=== PATIENT | female | born 1955 | race Caucasian/White ===

== ENCOUNTER → 2021-05-13 | Outpatient (CLI) | payer BC ==
[2021-05-13 20:36] LABS: Basophils # (A) 0.02 X 10*3/uL (0.00-0.10); Basophils % (A) 0.3 %; Eosinophils # (A) 0.08 X 10*3/uL (0.04-0.35); HCT 41.3 % (37.2-46.3); HGB 13.3 g/dL (12.0-15.0); Lymphocytes # (A) 1.48 X 10*3/uL (0.90-5.00); Lymphocytes % (A) 18.9 %; MCHC 32.2 g/dL (32.0-37.0); Mean Platelet Volume 10.1 fL (9.5-12.2); Monocytes # (A) 0.63 X 10*3/uL (0.20-1.00); Neutrophils % (A) 71.4 %; Platelet Count 294 X 10*3/uL (140-440); RBC 4.59 X 10*6/uL (4.10-5.20); RDW 13.5 % (11.5-14.5); WBC 7.84 X 10*3/uL (4.50-10.00)
[2021-05-13 21:11] LABS: Uric Acid 3.7 mg/dL (2.9-7.7)
[2021-05-13 22:55] LABS: Erythrocyte Sedimentation Rate 8 mm/Hr (0-30)
[2021-05-13 23:08] LABS: C Reactive Protein <0.30 mg/dL (0.00-0.80)
== END | disposition home or self-care (01) ==
LOC: LABWHC1 15:04
PROVIDERS: ATTEND Orthopaedic Surgery
DX: M70.61 Trochanteric bursitis, right hip (principal); M16.11 Unilateral primary osteoarthritis, right hip; M67.853 Other specified disorders of tendon, right hip
CPT/HCPCS: 36415; 84550; 85025; 85652; 86140

== ENCOUNTER → 2021-09-17 | Outpatient (CLI) | payer BC ==
[2021-09-17 16:17] LABS: INR 0.9 (<1.2); Prothrombin Time 10.2 sec (9.0-12.0)
[2021-09-17 22:56] LABS: Appearance,Urine Clear (Clear); Bilirubin,Urine Negative (Negative); Blood,Urine Negative (Negative); Color,Urine Yellow (Yellow); Ketones,Urine Negative (Negative); Leukocyte Esterase,Urine Negative (Negative); Nitrite,Urine Negative (Negative); PH, Urine 7.5 (5.0-8.0); Protein,Urine Negative (Negative); Urobilinogen,Urine 0.2 (0.2,1.0)
[2021-09-17 23:44] LABS: Basophils # (A) 0.03 X 10*3/uL (0.00-0.10); Basophils % (A) 0.6 %; Eosinophils # (A) 0.09 X 10*3/uL (0.04-0.35); Eosinophils % (A) 1.9 %; HCT 39.2 % (37.2-46.3); HGB 12.1 g/dL (12.0-15.0); Immature Grans, Automated 0.4 %; Lymphocytes # (A) 1.24 X 10*3/uL (0.90-5.00); Lymphocytes % (A) 25.6 %; MCH 26.3 pg (27.0-32.0); MCHC 30.9 g/dL (32.0-37.0); MCV 85.2 fL (80.0-97.0); Mean Platelet Volume 10.3 fL (9.5-12.2); Monocytes # (A) 0.46 X 10*3/uL (0.20-1.00); Monocytes % (A) 9.5 %; NRBC Per 100 WBC 0 /100 WBCS (0.0-0.0); Platelet Count 343 X 10*3/uL (140-440); RDW 15.9 % (11.5-14.5); WBC 4.84 X 10*3/uL (4.50-10.00)
[2021-09-18 00:22] LABS: African American GFR (CKD) 68.1 (60.0-200.0); Albumin 4.5 g/dL (3.8-4.9); Albumin/Globulin Ratio 1.63 (1.60-3.17); BUN/Creat Ratio 11.29 Ratio (12.00-20.00); Blood Urea Nitrogen 11.4 mg/dL (9.0-27.0); Calcium 9.7 mg/dL (8.7-10.3); Carbon Dioxide 22.1 mmol/L (20.0-27.5); Globulin 2.8 g/dL (1.6-3.3); Non-African American GFR(CKD) 58.8 (60.0-200.0); Total Bilirubin 0.4 mg/dL (0.30-1.20); Total Protein 7.3 g/dL (6.2-8.2)
== END | disposition home or self-care (01) ==
LOC: LABPAT 14:47
PROVIDERS: ATTEND Orthopaedic Surgery
DX: Z01.812 Encounter for preprocedural laboratory examination (principal)
CPT/HCPCS: 80053; 81003; 85025; 85610; 85730; 87070

== ENCOUNTER 2021-10-02 08:43 | Observation (INO) | payer BC ==
[2021-09-24 14:21] VITALS: BMI 25.7
[~2021-10-02 08:43] MED LIST: ACETAMINOPHEN TAB 500 MG TAB PO PRN; DEXAMETHASONE SOD PHOSPHATE 10 MG/ML 1 ML VIAL IV PRN; DOCUSATE 100 MG CAP PO PRN; FAMOTIDINE 20 MG/2 ML VIAL IVP PRN; KETOROLAC 15 MG/ML 1 ML VIAL IVP PRN; ONDANSETRON 4 MG/2 ML VIAL IVP PRN; ROPIVACAINE/EPI/CLONIDINE/KET 50 ML SYRINGE MISCELLANE PRN; TRANEXAMIC ACID 1,000 MG in SODIUM CHLORIDE 0.9% 100 ML IVPB ONE; TRANEXAMIC ACID IN NACL,ISO-OS 1,000 MG in SALINE 1 100ML.BAG IVPB PRN; VANCOMYCIN 1,000 MG in SODIUM CHLORIDE 0.9% 250 ML IVPB PRN; oxyCODONE ER 10 MG TAB.ER.12H PO PRN
[2021-10-02] MEDS: LACTATED RINGERS 1,000 ML IV SCH ×2 (09:12→21:42)
[2021-10-02] MEDS ORDERED: SCOPOLAMINE 1 MG/72 HR PATCH TRANSDERM ONE (09:50)
[2021-10-02] MEDS ORDERED: NEOSTIGMINE 1 MG/ML 10 ML VIAL ONE (09:55)
[2021-10-02] MEDS ORDERED: TRANEXAMIC ACID IN NACL,ISO-OS 1,000 MG/100 ML BAG ONE (09:55)
[2021-10-02] MEDS ORDERED: LIDOCAINE 1% INJ 10MG/ML (20 ML MDV) ONE (09:55)
[2021-10-02] MEDS ORDERED: fentaNYL (PF) 50 MCG/ML 2 ML AMP ONE (09:55)
[2021-10-02] MEDS ORDERED: SUCCINYLCHOLINE CHLORIDE 100 MG/5 ML SYR IV ONE (09:55)
[2021-10-02] MEDS ORDERED: GLYCOPYRROLATE 0.2 MG/ML 2 ML VIAL ONE (09:55)
[2021-10-02] MEDS ORDERED: MIDAZOLAM 2 MG/2 ML VIAL ONE (09:55)
[2021-10-02] MEDS ORDERED: PROPOFOL 10 MG/ML 20 ML VIAL IV ONE (09:55)
[2021-10-02] MEDS ORDERED: ROCURONIUM 10 MG/ML (5 ML VIAL) IV ONE (09:55)
[2021-10-02] MEDS ORDERED: LACTATED RINGERS 1,000 ML IV ONE (11:03)
--- NOTE | 2021-10-02 12:39 | FL ---
EXAMINATION TYPE: FL guidance operating room, XR Hip Limited RT DATE OF EXAM: 10/02/2021 CLINICAL HISTORY: Right hip pain and osteoarthritis TECHNIQUE: Fluoroscopy. Intraoperative limited views right hip. COMPARISON: None. FINDINGS: Fluoroscopic guidance was provided during right hip replacement procedure performed by Dr. Carnes. A total of 88 seconds of fluoroscopic time was utilized during the procedure and 7 spot i mages are acquired. Intraoperative Images acquired show placement of metallic hardware from right hip arthroplasty which appear satisfactory in position on frontal view. IMPRESSION: As Above.
[2021-10-02] MEDS ORDERED: HYDROmorphone 0.2 MG/1 ML SYRINGE IVP PRN (12:49)
[2021-10-02] MEDS ORDERED: NALOXONE 0.4 MG/ML 1 ML VIAL IV PRN (12:49)
[2021-10-02] MEDS ORDERED: HYDROmorphone 1 MG/ML 1 ML SYRINGE IVP PRN (12:49)
[2021-10-02] MEDS ORDERED: hydrOXYzine pamoate 25 MG CAP PO PRN (12:49)
[2021-10-02] MEDS ORDERED: HYDROmorphone 0.5 MG/0.5 ML SYRINGE IVP PRN (12:49)
[2021-10-02] MEDS ORDERED: HYDROcodone/APAP 5-325MG 1 EACH TAB PO PRN (12:49)
--- NOTE | 2021-10-02 12:52 | P.OP ---
Date of Procedure: 10/02/21 Preoperative Diagnosis: Right hip osteoarthritis Postoperative Diagnosis: Same Procedure(s) Performed: Right direct anterior total hip arthroplasty Implants: 1. Everton Trident II 48-mm cup 2. Olin Accolade II size #4 high offset stem 3. Biolox delta 36, +0 head Anesthesia: GETA Surgeon: Bhaskar Carnes Human Capital Manager #1: Jennifer Rascon Estimated Blood Loss (ml): 200 IV fluids (ml): 1,200 Pathology: none sent Condition: stable Disposition: PACU Indications for Procedure: The patient is a very pleasant 66-year-old female with a medical history significant for breast cancer. I have been seeing her since February 2021 for right hip pain. She initially had injections in her trochanteric bursa and an epidural spinal injection which gave minimal relief to her hip pain. She had exquisite pain with passive range of motion of the hip. Her x-rays showed mild arthritis and she had an MRI which showed mild to moderate arthritis with an effusion and reactive marrow edema in the lateral femoral neck. She underwent an image guided injection into the hip and had 100% relief of her pain. The injection was in May 2021. After several weeks the pain returned and she had severe, incapacitating right hip pain and severe pain with passive range of motion of the right hip. I had a long discussion with the patient in the office on the potential risks and complications of an elective total hip replacement through a direct anterior approach. Risks discussed include, but are certainly not limited to, risks from anesthesia, superficial infection requiring local wound care or antibiotics, de ep sher-prosthetic joint infection and the treatment required to eradicate infection, intraoperative fracture, postoperative periprosthetic fracture, damage to local blood vessels or nerves particularly the lateral femoral cutaneous nerve, delayed wound healing requiring local wound care or possibly surgical debridement, hip dislocation, leg length discrepancy, soft tissue irritation around the total hip implant such as iliopsoas tendinitis or trochanteric bursitis, wear and osteolysis from the implants, squeaking or audible noises, groin pain, thigh pain, heterotopic ossification, stiffness, aseptic loosening of the implants, dissatisfaction with surgical outcome, need for revision surgery, DVT, PE, swelling of the operative extremity, acute coronary event, stroke, failure to thrive, and possibly loss of life or limb. The patient understands that while these are the most common complications after an elective hip replacement there are certainly other less common complications possible. They were given ample time to ask questions regarding the potential complications of a hip replacement. Following our discussion the patient provided their verbal and written consent to go forward with an elective total hip replacement. Operative Findings: There was severe degenerative changes with full thickness cartilage loss over the superior aspect of the femoral head and full-thickness cartilage loss in the acetabulum. There was a large effusion and inflamed synovium in the hip joint. Description of Procedure: The patient was identified in the preoperative holding area and the correct hip was marked with my initials. I reviewed the procedure and consent with the patient. All of their questions were answered. The patient was then brought back into the operating room by anesthesia. While on the [facility] anesthesia was administered by the anesthesia team. Preoperative antibiotics and tranexamic acid were also given. After the patient was under anesthesia I examined their ankles to determine their preoperative leg length discrepancy. The skin over the anterior aspect of the hip was shaved to remove hair over the site of planned incision. Both feet and ankles were padded with webril and boots for the [place] were applied. The patient was then carefully transferred onto the [place] table. A perineal post was immediately placed. The arms were placed on arm holders and were well-padded. Both boots were secured to the spars on the [place] table. The patient was positioned so that the pelvis was centered over the post. Nonsterile drapes were applied. A timeout was performed identifying the correct patient, operative extremity, and procedure. At this point fluoroscopy was brought in to take preoperative images of the pelvis and operative hip. Using the standing AP pelvis from the office as a template, a comparable image was obtained with fluoroscopy. A metallic bar was used to create a bi-ischial line for use as a reference to leg length adjustments during the procedure. Global offset was also measured on both the operative and nonoperative leg. Fluoroscopy was then brought out and a pre-scrub using a chlorhexidine scrub brush was performed. The operative limb was then prepped and draped in the standard sterile fashion. An anterior longitudinal incision was made lateral and distal to the ASIS. The skin and subcutaneous tissues were incised sharply. The underlying tensor fascia was identified and incised in its midportion. The fascia was dissected free from the underlying muscle and the muscle belly was retracted. A blunt tipped cobra retractor was placed over the superior neck under the muscle fibers of the gluteus minimus. The deep enveloping fascia of the tensor was incised. The anterior leash of vessels were then identified and cauterized. The fascia between the rectus and the capsule was then incised and the pre-capsular fat was excised. A second Cobra was placed inferior to the neck. The interval between the rectus and iliocapsularis and the hip capsule was developed and a retractor was placed carefully over the anterior rim of the acetabulum. A T-shaped anterior capsulotomy was performed. The superior capsular leaflet was left in place in the inferior capsular flap was excised. The Cobra retractors were placed intracapsularly. We then made a femoral neck osteotomy according to preoperative and intraoperative templating and confirmed the level of the osteotomy using fluoroscopic imaging. The femoral head was removed, passed off to the back table, and sized. The superior capsular flap was excised. Retractors were placed circumferentially exposing the acetabulum. We then circumferentially debrided the acetabulum free of labrum and osteophytes. The pulvinar was removed to fully visualize the cotyloid fossa. We then sequentially reamed to achieve peripheral fit and excellent bleeding subchondral bone. The socket was thoroughly irrigated. The acetabular component was impacted into the appropriate position using fluoroscopy to guide version, inclination, and depth of insertion taking care to have a comparable image of the AP pelvis to the standing image taken in the office. An excellent press-fit was achieved and final position was confirmed using fluoroscopy. The press fit was augmented with bony cancellus dome screws. The liner was then impacted into the socket. Attention was then turned to the femur. The remnant dorsal lateral capsule was excised. The short external rotators were visible and protected. A bone hook was used to confirm appropriate translation of the trochanter away from the acetabulum. The leg was then extended and adducted and the bone hook was used to elevate the femur for broaching. A box osteotome and blunt tipped canal sound was then utilized to gain access to the femoral canal. We then sequentially broached the femur in appropriate anteversion until excellent torsional stability was achieved. The neck cut was brought flush to the trial broach with a calcar planar. A trial neck and head were then placed onto the broach and the hip was atraumatically reduced under direct visualization. E xternal rotation to 90 was performed to assess stability. Fluoroscopy was brought in. An AP and lateral fluoroscopic image of the proximal femur was obtained to assess position and fill of the trial broach. An AP of the pelvis was then obtained and matched to the preoperative image taken. A bi-ischial bar was then placed and measurements were taken to assess changes in length and offset. The hip was then carefully dislocated, the proximal femur was exposed, and the trial implants were removed. The wound and proximal femur was thoroughly irrigated using sterile saline and pulsatile lavage. The final femoral implant was dispensed and gently tapped into place generating an excellent press-fit. The trunnion was cleansed and the final head was tapped into place to engage the [place] taper. The acetabulum was irrigated and visualized to be free of debris. The hip was carefully reduced. Stability was checked clinically with external rotation to 90 and there was no evidence of instability. Final fluoroscopic images were taken. The wound was then thoroughly irrigated and soaked with a dilute Betadine rinse for 3 minutes. 3 L of sterile saline was irrigated through the wound using pulsatile lavage. Local anesthetic cocktail was injected into the soft tissues around the surgical field. A deep drain was placed. The wound was then closed in layers. A sterile dressing was placed over the surgical incision and drain site. The drapes were taken down and the patient was carefully transferred off of the [place] table. Following removal of the boots the leg lengths felt acceptable. The patient was then taken to recovery room having tolerated the procedure well. Jennifer Rascon PA-C was required as a skilled speech pathologist assistant for patient positioning, surgical exposure, retraction, placement of implants, and closure of the surgical wound. PLAN: The patient can weight-bear as tolerated on the operative extremity. 2 doses of postoperative antibiotics. DVT prophylaxis with aspirin 81 mg twice a day based on preoperative risk stratification. Physical therapy for gait training. Discontinue drain postoperative day #1 if output is less than 100 mL per shift.
[2021-10-02] MEDS: HYDROmorphone 0.5 MG/0.5 ML SYRINGE IVP PRN ×3 (13:31→14:01)
--- NOTE | 2021-10-02 17:03 | P.CONS ---
History of Present Illness - Reason for Consult Consult date: 10/02/21 Medical management Requesting physician: Bhaskar Carnes - Chief Complaint Right hip pain - History of Present Illness This is a 66-year-old patient who follows with Dr. Jimenez. Chronic stable medical conditions include GERD, hyperlipidemia, hypertension, history of left breast cancer treated with radiation and chemotherapy and ALLERGIES for which she takes Singulair. Patient has undergone right total hip arthroplasty. Postprocedure rather sleepy. No chest pain or shortness of breath. No nausea. at the bedside. Review of systems: GEN.: Tired EYES: None HEENT: None NECK: None RESPIRATORY: None CARDIOVASCULAR: None GASTROINTESTINAL: None GENITOURINARY: None MUSCULOSKELETAL: Joint pains LYMPHATICS: None HEMATOLOGICAL: None PSYCHIATRY: None NEUROLOGICAL: None Past medical history to include: GERD, hyperlipidemia, hypertension, SVT, left breast cancer in 2010 treated with radiation and chemo, hypothyroid, depression and anxiety Social history: . No history of smoking alcohol Family history: Reviewed, noncontributory to presentation Physical examination: VITAL SIGNS: 97.4, 71, 16, 141/78, 92% on room air GENERAL: BMI 25.7, laying in bed, awake, tired. EYES: Pupils equal. Conjunctiva normal. HEENT: External appearance of nose and ears normal, oral cavity grossly normal. NECK: JVD not raised; masses not palpable. HEART: First and second heart sounds are normal; no edema. LUNGS: Respiratory rate normal; clear to auscultation. ABDOMEN: Soft, nontender, liver spleen not palpable, no masses palpable. PSYCH: Alert and oriented x3; mood and affect normal. MUSCULOSKELETAL:No Clubbing/cyanosis;muscles-grossly intact. Evidence of OA. Dressing over the right hip incision. NEUROLOGICAL: Cranial nerves grossly intact; no facial asymmetry, power and sensation grossly intact. LYMPHATICS: No lymph nodes palpable in the axilla and neck INVESTIGATIONS, reviewed in the clinical context: White count 4.8 hemoglobin 12.1 platelets 343 potassium 4 creatinine 1.0 Assessment and plan: -Right total hip arthroplasty Aspirin 81 mg twice a day for DT prophylaxis. Antibiotic prophylaxis with Ancef. Pain control -GERD Protonix 40 mg a day -Chronic ALLERGIES Singulair 10 mg daily at bedtime -Hyperlipidemia Lipitor 20 mg a day -Essential hypertension Cardizem 30 mg twice a day hydrochlorothiazide 25 mg a day -Hypothyroid Synthroid 75 g a day -Depression and anxiety not otherwise specified Wellbutrin SR 150 mg a day Resume home medications. Aspirin for DVT prophylaxis. Diet as tolerated. Care was discussed with the patient question also. Thank you Dr. Carnes Past Medical History Past Medical History: Cancer, GERD/Reflux, Hyperlipidemia, Hypertension, Suprav entricular Tachycardia (SVT) Additional Past Medical History / Comment(s): left breast CA December 2010-received both radiation & chemo History of Any Multi-Drug Resistant Organisms: None Reported Past Surgical History: Cholecystectomy, Hysterectomy Additional Past Surgical History / Comment(s): vitaliy mastectomy with reconstruction and implants removed,vitaliy wrist tendon surgery Past Anesthesia/Blood Transfusion Reactions: Motion Sickness, Postoperative Nausea & Vomiting (PONV) Additional Past Anesthesia/Blood Transfusion Reaction / Comm: no hx blood transfusion Past Psychological History: Anxiety, Depression Smoking Status: Never smoker Past Alcohol Use History: None Reported Past Drug Use History: None Reported - Past Family History Mother Family Medical History: No Reported History Medications and Allergies Home Medications Medication Instructions Recorded Confirmed Type [place]-Sektzer Plus Sinus & Pain 1 tab PO DAILY PRN 09/24/21 10/02/21 History Anastrozole [Arimidex] 1 mg PO DAILY 09/24/21 10/02/21 History Aspirin [Vazalore] 81 mg PO DAILY 09/24/21 10/02/21 History Atorvastatin Calcium [Lipitor] 20 mg PO DAILY 09/24/21 10/02/21 History Flecainide [Tambocor] 50 mg PO Q12HR 09/24/21 10/02/21 History Levothyroxine Sodium [Synthroid] 75 mcg PO DAILY 09/24/21 10/02/21 History Montelukast Sodium [Singulair] 10 mg PO HS 09/24/21 10/02/21 History Pantoprazole [Protonix] 40 mg PO QAM 09/24/21 10/02/21 History Potassium Chloride ER [K-Dur 20] 20 meq PO DAILY 09/24/21 10/02/21 History Spironolactone [Aldactone] 25 mg PO DAILY 09/24/21 10/02/21 History buPROPion SR [Wellbutrin SR] 150 mg PO QAM 09/24/21 10/02/21 History dilTIAZem HCL 30 mg PO BID 09/24/21 10/02/21 History hydroCHLOROthiazide [Hydrodiuril] 25 mg PO DAILY 09/24/21 10/02/21 History Allergies Allergy/AdvReac Type Severity Reaction Status Date / Time Tetracyclines Allergy oral sores Verified 10/02/21 09:18 ciprofloxacin [From Cipro] AdvReac MONET,N/V Verified 10/02/21 09:18 morphine AdvReac Itching Verified 10/02/21 09:18 sulfamethoxazole AdvReac MONET,N/V Verified 10/02/21 09:18 [From Bactrim] trimethoprim [From Bactrim] AdvReac MONET,N/V Verified 10/02/21 09:18 Physical Exam Vitals: Vital Signs Temp Pulse Pulse Resp BP BP Pulse Ox 10/02/21 15:17 97.4 F L 71 16 141/78 92 L 10/02/21 14:28 64 16 128/72 100 10/02/21 14:17 63 16 129/70 100 10/02/21 14:01 71 10 L 100 10/02/21 13:53 11 L 126/63 100 10/02/21 13:48 10 L 100 10/02/21 13:47 8 L 88 L 10/02/21 13:44 68 15 128/71 99 10/02/21 13:39 12 100 10/02/21 13:34 66 11 L 122/70 100 10/02/21 13:17 75 12 133/69 100 10/02/21 13:11 68 16 124/64 100 10/02/21 12:57 66 16 118/61 100 10/02/21 12:42 98.0 F 77 16 129/62 98 10/02/21 09:13 97.3 F L 57 L 16 146/72 100 Intake and Output 10/02/21 10/02/21 10/02/21 06:59 14:59 22:59 Intake Total 1950 Output Total 230 Balance 1720 Intake: IV 1950 Output: Estimated Blood Loss 230 Other: # Voids 0 Weight 68 kg
[2021-10-02] MEDS ORDERED: ONDANSETRON 4 MG/2 ML VIAL IVP PRN (17:08)
[2021-10-02] MEDS ORDERED: ONDANSETRON 4 MG/2 ML VIAL ONE (17:21)
[2021-10-02] MEDS: MONTELUKAST 10 MG TAB PO SCH (21:48)
[2021-10-02] MEDS: FLECAINIDE 50 MG TAB PO SCH (21:48)
[2021-10-02] MEDS: DILTIAZEM ORAL 30 MG TAB PO SCH (21:48)
[2021-10-02] MEDS: ASPIRIN 81 MG PO SCH (21:48)
[2021-10-02] MEDS: SENNOSIDES-DOCUSATE SODIUM 1 EACH TAB PO SCH (21:48)
[2021-10-02] MEDS: HYDROcodone/APAP 5-325MG 1 EACH TAB PO PRN (21:49)
[2021-10-02] MEDS: ATORVASTATIN 20 MG TAB PO SCH (22:21)
[2021-10-03] MEDS: LEVOTHYROXINE 75 MCG TAB PO SCH (05:46)
[2021-10-03] MEDS: HYDROcodone/APAP 5-325MG 1 EACH TAB PO PRN ×3 (05:46→21:03)
[2021-10-03] MEDS: SPIRONOLACTONE 25 MG TAB PO SCH (08:42)
[2021-10-03] MEDS: FLECAINIDE 50 MG TAB PO SCH ×2 (08:52→20:39)
[2021-10-03] MEDS: PANTOPRAZOLE 40 MG TABLET PO SCH (08:52)
[2021-10-03] MEDS: ANASTROZOLE 1 MG TAB PO SCH (08:52)
[2021-10-03] MEDS: DILTIAZEM ORAL 30 MG TAB PO SCH ×2 (08:52→20:39)
[2021-10-03] MEDS: ASPIRIN 81 MG PO SCH (08:52)
[2021-10-03] MEDS: buPROPion SR 150 MG TABLET.ER PO SCH (08:52)
[2021-10-03] MEDS ORDERED: ATORVASTATIN 20 MG TAB PO SCH (09:00)
[2021-10-03] MEDS ORDERED: ASPIRIN 81 MG PO SCH (09:00)
[2021-10-03 10:17] LABS: Basophils # (A) 0.01 X 10*3/uL (0.00-0.10); Basophils % (A) 0.1 %; Eosinophils # (A) 0 X 10*3/uL (0.04-0.35); Eosinophils % (A) 0 %; HCT 31.5 % (37.2-46.3); HGB 9.7 g/dL (12.0-15.0); Immature Grans, Automated 0.5 %; Lymphocytes # (A) 0.62 X 10*3/uL (0.90-5.00); Lymphocytes % (A) 5.1 %; MCH 26.1 pg (27.0-32.0); MCHC 30.8 g/dL (32.0-37.0); MCV 84.9 fL (80.0-97.0); Mean Platelet Volume 10.1 fL (9.5-12.2); Monocytes % (A) 5.8 %; NRBC Per 100 WBC 0 /100 WBCS (0.0-0.0); Neutrophils # (A) 10.73 X 10*3/uL (1.80-7.70); Neutrophils % (A) 88.5 %; Platelet Count 280 X 10*3/uL (140-440); RBC 3.71 X 10*6/uL (4.10-5.20); RDW 15.9 % (11.5-14.5); WBC 12.12 X 10*3/uL (4.50-10.00)
--- NOTE | 2021-10-03 11:58 | P.PN ---
Subjective Progress Note Date: 10/03/21 This patient is a 66-year-old female who is status-post direct anterior right total hip arthroplasty on 10/02/21. Today is post-operative day #1. Patient is seen and examined bedside. Patient has been up ambulating with physical therapy and is doing well. Pain in the right hip is well-controlled. Per nursing, patient is experiencing issues swallowing. She also required straight cath last evening and has been unable to void post-operatively. Patient otherwise feels well and denies chest pain, shortness of breath, nausea, vomiting, numbness or tingling off the right lower extremity. Vital signs stable. Objective - Vital Signs Vital signs: Vital Signs Temp 98.5 F 10/03/21 07:43 Pulse 65 10/03/21 07:43 Resp 16 10/03/21 07:43 BP 108/65 10/03/21 07:43 Pulse Ox 95 10/03/21 07:43 Intake & Output 10/02/21 10/03/21 10/03/21 18:59 06:59 18:59 Intake Total 1950 Output Total 260 680 Balance 1690 -680 Weight 68 kg Intake: IV 1950 Output: Drainage 30 80 Right Hip 30 80 Urine 600 Straight 600 Estimated Blood Loss 230 Other: # Voids 0 - Exam On examination, patient is sitting up in the bedside chair in no apparent distress. She is alert and oriented 3. On inspection of the right hip, there is a clean, dry, intact surgical dressing in place with no bleeding or drainage through the dressing. Hemovac drain in place. There is mild swelling of the thigh, thigh soft and compressible. Patient has good strength and range of motion of the right ankle and toes. Motor and sensory function is intact of the right lower extremity. Femoral nerve function intact. Dorsalis pedis pulses +2, the right lower extremity is warm and well-perfused with brisk capillary refill distally. Calf soft nontender to palpation. - Labs CBC & Chem 7: 10/03/21 06:27 Labs: Abnormal Lab Results - Last 24 Hours (Table) 10/03/21 Range/Units 06:27 WBC 12.12 H (4.50-10.00) X 10*3/uL RBC 3.71 L (4.10-5.20) X 10*6/uL Hgb 9.7 L (12.0-15.0) g/dL Hct 31.5 L (37.2-46.3) % MCH 26.1 L (27.0-32.0) pg MCHC 30.8 L (32.0-37.0) g/dL RDW 15.9 H (11.5-14.5) % Immature Gran # 0.06 H (0.00-0.04) X 10*3/uL Neutrophils # 10.73 H (1.80-7.70) X 10*3/uL Lymphocytes # 0.62 L (0.90-5.00) X 10*3/uL Eosinophils # 0 L (0.04-0.35) X 10*3/uL Assessment and Plan Assessment: Status-post direct anterior right total hip arthroplasty on 10/02/21. Post- operative day #1. Plan: - Weight bear as tolerated on operative leg with a walker. - Physical therapy for gait and balance training. - Aspirin 81mg BID for DVT prophylaxis. - Post-operative IV antibiotics complete. - Pain management as needed. - Internal medicine consultation for sher-operative medical management. Speech therapy has been consulted per Dr. Benitez for swallowing issues. - Will plan to leave drain in until tomorrow. Leave operative dressings intact. - Anticipate discharge home with home health care when medically cleared.
[2021-10-03] MEDS: TAMSULOSIN 0.4 MG CAP.ER.24H PO SCH (12:16)
--- NOTE | 2021-10-03 15:28 | P.CONS ---
History of Present Illness - Reason for Consult Consult date: 10/03/21 dysphagia Requesting physician: Chi Benitez - Chief Complaint Hip pain - History of Present Illness This is 66-year-old female who was scheduled for right total hip arthroplasty. She underwent her procedure yesterday with Dr. Carnes she has a past medical history including GERD, hyperlipidemia, hypertension and left breast cancer treated with radiation and chemotherapy. Patient states that she has been having difficulty swallowing since Thursday. Gastroenterology was consulted for further evaluation of dysphagia. Patient states that she feels like food is getting stuck in her throat. She states that this began on Thursday and she is having difficulty with solid foods and even that liquids. She states she is able to tolerate soft foods such as mashed potatoes and puddings. She denies any pills getting stuck in her throat prior to feelings of food getting stuck. She is having a history of ulcer. She had a prior EGD, unsure of when. She denies any hematemesis or coffee-ground emesis. She denies any abdominal pain, weight loss, nausea vomiting. CBC 12 hemoglobin 9.7 hematocrit 31 platelet count 280,000 Review of Systems REVIEW OF SYSTEMS: CARDIOPULMONARY: No chest pain or shortness of breath. Gastrointestinal: Feeling like food is getting stuck in throat. No nausea or vomiting. No hematemesis, coffee-ground emesis. No rectal bleeding, or melena. GENITOURINARY: No dysuria or hematuria. MUSCULOSKELETAL: Reports normal range of motion. Right hip surgery done yesterday. SKIN: No rashes. No jaundice. ENDOCRINE: No chills, fevers. No excessive weight gain or loss. No polydipsia or polyuria. PSYCHIATRIC: Unremarkable. NEUROLOGY: No change in mental status. Denies dizziness, headache. ENT: Vision unremarkable. CONSTITUTIONAL: No recent weight loss. No fever, chills, night sweats. Past Medical History Past Medical History: Cancer, GERD/Reflux, Hyperlipidemia, Hypertension, Supraventricular Tachycardia (SVT) Additional Past Medical History / Comment(s): left breast CA December 2010-received both radiation & chemo History of Any Multi-Drug Resistant Organisms: None Reported Past Surgical History: Cholecystectomy, Hysterectomy Additional Past Surgical History / Comment(s): vitaliy mastectomy with reconstruction and implants removed,vitaliy wrist tendon surgery Past Anesthesia/Blood Transfusion Reactions: Motion Sickness, Postoperative Feng sea & Vomiting (PONV) Additional Past Anesthesia/Blood Transfusion Reaction / Comm: no hx blood transfusion Past Psychological History: Anxiety, Depression Smoking Status: Never smoker Past Alcohol Use History: None Reported Past Drug Use History: None Reported - Past Family History Mother Family Medical History: No Reported History Medications and Allergies Home Medications Medication Instructions Recorded Confirmed Type [place]-Sektzer Plus Sinus & Pain 1 tab PO DAILY PRN 09/24/21 10/02/21 History Anastrozole [Arimidex] 1 mg PO DAILY 09/24/21 10/02/21 History Aspirin [Vazalore] 81 mg PO DAILY 09/24/21 10/02/21 History Atorvastatin Calcium [Lipitor] 20 mg PO DAILY 09/24/21 10/02/21 History Flecainide [Tambocor] 50 mg PO Q12HR 09/24/21 10/02/21 History Levothyroxine Sodium [Synthroid] 75 mcg PO DAILY 09/24/21 10/02/21 History Montelukast Sodium [Singulair] 10 mg PO HS 09/24/21 10/02/21 History Pantoprazole [Protonix] 40 mg PO QAM 09/24/21 10/02/21 History Potassium Chloride ER [K-Dur 20] 20 meq PO DAILY 09/24/21 10/02/21 History Spironolactone [Aldactone] 25 mg PO DAILY 09/24/21 10/02/21 History buPROPion SR [Wellbutrin SR] 150 mg PO QAM 09/24/21 10/02/21 History dilTIAZem HCL 30 mg PO BID 09/24/21 10/02/21 History hydroCHLOROthiazide [Hydrodiuril] 25 mg PO DAILY 09/24/21 10/02/21 History Allergies Allergy/AdvReac Type Severity Reaction Status Date / Time Tetracyclines Allergy oral sores Verified 10/02/21 09:18 ciprofloxacin [From Cipro] AdvReac MONET,N/V Verified 10/02/21 09:18 morphine AdvReac Itching Verified 10/02/21 09:18 sulfamethoxazole AdvReac MONET,N/V Verified 10/02/21 09:18 [From Bactrim] trimethoprim [From Bactrim] AdvReac MONET,N/V Verified 10/02/21 09:18 Physical Exam Vitals: Vital Signs Temp Pulse Resp BP Pulse Ox 10/03/21 07:43 98.5 F 65 16 108/65 95 10/03/21 01:17 98.0 F 65 20 109/63 95 10/02/21 19:07 97.6 F 61 18 139/80 98 10/02/21 15:17 97.4 F L 71 16 141/78 92 L 10/02/21 14:28 64 16 128/72 100 10/02/21 14:17 63 16 129/70 100 10/02/21 14:01 71 10 L 100 10/02/21 13:53 11 L 126/63 100 10/02/21 13:48 10 L 100 10/02/21 13:47 8 L 88 L 10/02/21 13:44 68 15 128/71 99 10/02/21 13:39 12 100 10/02/21 13:34 66 11 L 122/70 100 10/02/21 13:17 75 12 133/69 100 10/02/21 13:11 68 16 124/64 100 Intake and Output 10/02/21 10/03/21 10/03/21 22:59 06:59 14:59 Output Total 110 600 Balance -110 -600 Output: Drainage 110 Right Hip 110 Urine 600 Straight 600 Other: # Voids 0 General appearance: The patient is alert, oriented, appears in no acute distress. HET: Head is normocephalic and atraumatic. Conjunctiva pink. Sclera anicteric. Neck: Supple without lymphadenopathy. Trachea midline. Heart: S1 S2. Regular rate and rhythm. Lungs: Clear to auscultation. Abdomen: Soft, nontender, nondistended with bowel sounds. No guarding or rigidity. Skin: No rashes. No jaundice. Extremities: Normal skin color and turgor. No pedal edema. Neurological: No focal deficits. Alert and oriented x3. Results CBC & Chem 7: 10/03/21 06:27 Labs: Abnormal Lab Results - Last 24 Hours (Table) 10/03/21 Range/Units 06:27 WBC 12.12 H (4.50-10.00) X 10*3/uL RBC 3.71 L (4.10-5.20) X 10*6/uL Hgb 9.7 L (12.0-15.0) g/dL Hct 31.5 L (37.2-46.3) % MCH 26.1 L (27.0-32.0) pg MCHC 30.8 L (32.0-37.0) g/dL RDW 15.9 H (11.5-14.5) % Immature Gran # 0.06 H (0.00-0.04) X 10*3/uL Neutrophils # 10.73 H (1.80-7.70) X 10*3/uL Lymphocytes # 0.62 L (0.90-5.00) X 10*3/uL Eosinophils # 0 L (0.04-0.35) X 10*3/uL Assessment and Plan (1) Dysphagia Narrative/Plan: 66-year-old female who came into the hospital for scheduled for right hip replacement. Patient is postop day #1 with complaints of difficulty swallowing. Patient states the symptoms actually began on Thursday. She does not recall anything preceding it. She does have a history of peptic ulcer disease however that was several years ago. She is having difficulty swallowing of solid foods as well as thin liquids. Seems to be tolerating soft foods such as mashed potatoes and puddings. She does have a history of acid reflux and takes Protonix at home. Unclear etiology, may be esophageal stricture, gastritis or esophagitis. We will proceed with EGD tomorrow with possible dilation. Patient is not on any anticoagulation. Current Visit: Yes Status: Acute Code(s): R13.10 - DYSPHAGIA, UNSPECIFIED SNOMED Code(s): 61691981 (2) Osteoarthritis of right hip Current Visit: Yes Status: Acute Code(s): M16.11 - UNILATERAL PRIMARY OSTEOARTHRITIS, RIGHT HIP SNOMED Code(s): 697552979381572 (3) S/P total right hip arthroplasty Current Visit: Yes Status: Acute Code(s): Z96.641 - PRESENCE OF RIGHT ARTIFICIAL HIP JOINT SNOMED Code(s): 432059789351 Plan: 1. Continue symptomatic and supportive care 2. Nothing by mouth after midnight 3. Protonix 40 mg daily 4. We will proceed with EGD with possible dilation tomorrow, procedure discussed with patient including risks and benefits. Patient willing to proceed. Thank you for this consultation, we'll continue to follow. Dr. Ankush Forbes I agree with the dictator's note, documented as a scribe by Dorcas Otoole.
[2021-10-03] MEDS ORDERED: LACTATED RINGERS 1,000 ML IV SCH (16:30)
--- NOTE | 2021-10-03 17:04 | FL ---
EXAMINATION TYPE: FL single contrast barium swallow DATE OF EXAM: 10/03/2021 CLINICAL INDICATION: 66-year-old female with new sensation of food and water sticking in the upper ch est. Patient with right hip replacement yesterday. COMPARISON: None Total Fluoroscopy Time: Minutes 22 seconds 46 images obtained. FINDINGS: On the upright drinking imaging is performed with thick barium. The swallowing mechanism is normal. There is mild anterior endplate spondylosis mid and lower cervica l spine causing mild impressions on the back wall of the cervical esophagus. No obstruction. No diver ticula. No cricopharyngeal bar. The hypopharyngeal anatomy is otherwise preserved. The patient points to the upper chest at the site of sensation where contrast feels like it becomes s tuck. There is satisfactory passage across this level without obstruction or filling defect. The thor acic portion has a normal course and caliber. Overall normal motility. No sizable hiatal hernia. Prominent ingested debris and fluid within the stomach with a nondependent gastric bubble. IMPRESSION: 1. No stricture or suspicious filling defect within the esophagus. 2. There is mild anterior endplate spondylosis in the mid and lower cervical spine that causes mild i mpression onto the back wall of the cervical esophagus but without any obstruction.
--- NOTE | 2021-10-03 17:27 | P.PN ---
Progress Note - Text Progress Note Date: 10/03/21 - Chief Complaint Right hip pain Hospital course This is a 66-year-old patient who follows with Dr. Jimenez. Chronic stable medical conditions include GERD, hyperlipidemia, hypertension, history of left breast cancer treated with radiation and chemotherapy and ALLERGIES for which she takes Singulair. Patient has undergone right total hip arthroplasty. Postprocedure rather sleepy. No chest pain or shortness of breath. No nausea. at the bedside. October 03: Patient did work with therapy. It was discovered that patient been having trouble swallowing both solids and liquids for some time. About 3 years ago and by that she undergo EGD. That time she was found to have esophageal polyps and a bleeding ulcer. Discussed with the patient . We'll order a barium swallow and also discussed Dr. Ankush Forbes from GI for endoscopy tomorrow. Aspirin has been held. Discussed with Dr. Carnes from orthopedics. Active Medications Hydrocodone Bitart/Acetaminophen (Hydrocodone/Apap 5-325mg 1 Each Tab) 1 each PO Q6HR PRN PRN Reason: Pain Scale 1 to 5 Stop: 11/01/21 12:50 Hydrocodone Bitart/Acetaminophen (Hydrocodone/Apap 5-325mg 1 Each Tab) 2 each PO Q6HR PRN PRN Reason: Pain Scale 6 to 10 Stop: 11/01/21 12:50 Last Admin: 10/03/21 12:15 Dose: 2 each Documented by: Anastrozole (Anastrozole 1 Mg Tab) 1 mg PO DAILY [facility] Last Admin: 10/03/21 08:52 Dose: 1 mg Documented by: Atorvastatin Calcium (Atorvastatin 20 Mg Tab) 20 mg PO HS [facility] Last Admin: 10/02/21 22:21 Dose: 20 mg Documented by: Bupropion HCl (Bupropion Sr 150 Mg Tablet.Er) 150 mg PO QAM [facility] Last Admin: 10/03/21 08:52 Dose: 150 mg Documented by: Diltiazem HCl (Diltiazem Oral 30 Mg Tab) 30 mg PO BID [facility] Last Admin: 10/03/21 08:52 Dose: 30 mg Documented by: Flecainide Acetate (Flecainide 50 Mg Tab) 50 mg PO Q12HR [facility] Last Admin: 10/03/21 08:52 Dose: 50 mg Documented by: Hydromorphone HCl (Hydromorphone 0.2 Mg/1 Ml Syringe) 0.2 mg IVP Q3HR PRN PRN Reason: Pain Scale 1 to 3 Stop: 11/01/21 12:50 Hydromorphone HCl (Hydromorphone 0.5 Mg/0.5 Ml Syringe) 0.5 mg IVP Q3HR PRN PRN Reason: Pain Scale 4 to 6 Stop: 11/01/21 12:50 Last Admin: 10/03/21 02:30 Dose: 0.5 mg Documented by: Hydromorphone HCl (Hydromorphone 1 Mg/Ml 1 Ml Syringe) 1 mg IVP Q3HR PRN PRN Reason: Pain Scale 7 to 10 Stop: 11/01/21 12:50 Hydroxyzine Pamoate (Hydroxyzine Pamoate 25 Mg Cap) 25 mg PO Q4HR PRN PRN Reason: Nausea, Anxiety, Pain Control Stop: 11/01/21 12:50 Lactated Ringer's (Lactated Ringers) 1,000 mls @ 20 mls/hr IV .Q24H [facility] Stop: 10/31/21 19:46 Last Admin: 10/02/21 21:42 Dose: Not Given Documented by: Lactated Ringer's (Lactated Ringers) 1,000 mls @ 20 mls/hr IV .Q24H [facility] Last Admin: 10/03/21 17:07 Dose: Not Given Documented by: Levothyroxine Sodium (Levothyroxine 75 Mcg Tab) 75 mcg PO 0630 [facility] Last Admin: 10/03/21 05:46 Dose: 75 mcg Documented by: Montelukast Sodium (Montelukast 10 Mg Tab) 10 mg PO HS [facility] Last Admin: 10/02/21 21:48 Dose: 10 mg Documented by: Naloxone HCl (Naloxone 0.4 Mg/Ml 1 Ml Vial) 0.2 mg IV Q2M PRN PRN Reason: Opioid Reversal Stop: 11/01/21 12:50 Ondansetron HCl (Ondansetron 4 Mg/2 Ml Vial) 4 mg IVP Q6HR PRN PRN Reason: Nausea And Vomiting Pantoprazole Sodium (Pantoprazole 40 Mg Tablet) 40 mg PO QAM [facility] Last Admin: 10/03/21 08:52 Dose: 40 mg Documented by: Senna/Docusate Sodium (Sennosides-Docusate Sodium 1 Each Tab) 2 each PO HS [facility] Stop: 11/01/21 21:01 Last Admin: 10/02/21 21:48 Dose: 2 each Documented by: Spironolactone (Spironolactone 25 Mg Tab) 25 mg PO DAILY [facility] Last Admin: 10/03/21 08:42 Dose: Not Given Documented by: Tamsulosin HCl (Tamsulosin 0.4 Mg Cap.Er.24h) 0.4 mg PO PC-BRKFST [facility] Last Admin: 10/03/21 12:16 Dose: 0.4 mg Documented by: Past medical history to include: GERD, hyperlipidemia, hypertension, SVT, left breast cancer in 2010 treated with radiation and chemo, hypothyroid, depression and anxiety Social history: . No history of smoking alcohol Family history: Reviewed, noncontributory to presentation Physical examination: VITAL SIGNS: 98.6, 58, 18, 104/64, 90% room air GENERAL: He planning bed, awake, comfortable EYES: Pupils equal. Conjunctiva normal. HEENT: External appearance of nose and ears normal, oral cavity grossly normal. NECK: JVD not raised; masses not palpable. HEART: First and second heart sounds are normal; no edema. LUNGS: Respiratory rate normal; clear to auscultation. ABDOMEN: Soft, nontender, liver spleen not palpable, no masses palpable. PSYCH: Alert and oriented x3; mood and affect normal. MUSCULOSKELETAL:No Clubbing/cyanosis;muscles-grossly intact. Evidence of OA. Dressing over the right hip incision. INVESTIGATIONS, reviewed in the clinical context: October 03: White count 12.1 hemoglobin 9.7 platelets 280 White count 4.8 hemoglobin 12.1 platelets 343 potassium 4 creatinine 1.0 Assessment and plan: -Right total hip arthroplasty Aspirin 81 mg twice a day for DT prophylaxis. Antibiotic prophylaxis with Ancef. Pain control -Progressive dysphagia to solids and liquids with a history of esophageal polyps and peptic ulcer disease about 3 years ago. Barium swallow tomorrow morning and EGD with Dr. Ankush Forbes. Hold aspirin. -GERD Protonix 40 mg a day -Chronic ALLERGIES Singulair 10 mg daily at bedtime -Hyperlipidemia Lipitor 20 mg a day -Essential hypertension Cardizem 30 mg twice a day hydrochlorothiazide 25 mg a day -Hypothyroid Synthroid 75 g a day -Depression and anxiety not otherwise specified Wellbutrin SR 150 mg a day Hold aspirin. Schedule barium swallow for tomorrow morning. An EGD. Other med ications to continue. Subcu Lovenox for DVT prophylaxis today. Total time spent today about 45 minutes with over 30 minutes of discussion. Thank you Dr. Carnes
[2021-10-03] MEDS: ATORVASTATIN 20 MG TAB PO SCH (21:03)
[2021-10-03] MEDS: MONTELUKAST 10 MG TAB PO SCH (21:03)
[2021-10-03] MEDS: SENNOSIDES-DOCUSATE SODIUM 1 EACH TAB PO SCH (21:03)
[2021-10-03] MEDS: ENOXAPARIN 30 MG/0.3 ML SYRINGE SQ SCH (21:03)
[2021-10-03] MEDS: LACTATED RINGERS 1,000 ML IV SCH (21:43)
[2021-10-04] MEDS: HYDROcodone/APAP 5-325MG 1 EACH TAB PO PRN ×2 (05:42→15:33)
[2021-10-04] MEDS: LEVOTHYROXINE 75 MCG TAB PO SCH (05:42)
[2021-10-04] MEDS: TAMSULOSIN 0.4 MG CAP.ER.24H PO SCH (08:36)
[2021-10-04 08:38] VITALS: RESP 16; TEMP 98.4
[2021-10-04] MEDS: PANTOPRAZOLE 40 MG TABLET PO SCH (11:33)
[2021-10-04] MEDS: ENOXAPARIN 30 MG/0.3 ML SYRINGE SQ SCH (11:33)
[2021-10-04] MEDS: buPROPion SR 150 MG TABLET.ER PO SCH (11:33)
[2021-10-04] MEDS: ANASTROZOLE 1 MG TAB PO SCH (11:33)
[2021-10-04] MEDS: FLECAINIDE 50 MG TAB PO SCH (11:33)
[2021-10-04] MEDS: DILTIAZEM ORAL 30 MG TAB PO SCH (11:33)
[2021-10-04] MEDS: SPIRONOLACTONE 25 MG TAB PO SCH (11:34)
--- NOTE | 2021-10-04 12:07 | P.PN ---
Subjective Progress Note Date: 10/04/21 This patient is a 66-year-old female who is status-post direct anterior right total hip arthroplasty on 10/02/21. Today is post-operative day #2. Patient is seen and examined bedside with Dr. Carnes. Patient is scheduled for EGD today with Dr. Forbes for difficulty swallowing. She has been ambulating with a walker with minimal pain. Patient states the pain in her right hip is well-controlled. No new complaints today. Vital signs stable. Objective - Vital Signs Vital signs: Vital Signs Temp 98.4 F 10/04/21 08:37 Pulse 66 10/04/21 08:37 Resp 16 10/04/21 08:37 BP 113/68 10/04/21 08:37 Pulse Ox 99 10/04/21 08:37 Intake & Output 10/03/21 10/04/21 10/04/21 18:59 06:59 18:59 Intake Total 530 Output Total 600 399 Balance -70 -399 Intake: Intake, IV Titration 50 Amount ceFAZolin 2 gm In Sodium 50 Chloride 0.9% 50 ml @ 100 mls/hr IVPB Q8H [facility] Rx#: [id number] Oral 480 Output: Drainage 110 Right Hip 110 Urine 600 200 Uretheral (Fletcher) 300 Post Void Residual 89 - Exam On examination, patient is sitting up in the bedside chair in no apparent distress. She is alert and oriented 3. On inspection of the right hip, there is a clean, dry, intact surgical dressing in place with no bleeding or drainage through the dressing. Hemovac drain removed today. There is mild swelling of the thigh, thigh soft and compressible. Patient has good strength and range of motion of the right ankle and toes. Motor and sensory function is intact of the right lower extremity. Femoral nerve function intact. Dorsalis pedis pulses +2, the right lower extremity is warm and well-perfused with brisk capillary refill distally. Calf soft nontender to palpation. - Labs CBC & Chem 7: 10/03/21 06:27 Assessment and Plan Assessment: Status-post direct anterior right total hip arthroplasty on 10/02/21. Post- operative day #2. Plan: - Weight bear as tolerated on operative leg with a walker. - Physical therapy for gait and balance training. - We would recommend continuing aspirin 81mg BID for DVT prophylaxis. - Pain management as needed. - Internal medicine consultation for sher-operative medical management. Patient is scheduled for EGD today with Dr. Forbes for difficulty swallowing. - Hemovac drain has been pulled today. - Anticipate discharge home with home health care when medically cleared.
[2021-10-04] MEDS ORDERED: SODIUM CHLORIDE 0.9% 1,000 ML IV ONE (14:45)
[2021-10-04] MEDS ORDERED: LIDOCAINE 1% INJ 10MG/ML (20 ML MDV) ONE (14:45)
[2021-10-04] MEDS ORDERED: PROPOFOL 10 MG/ML 20 ML VIAL IV ONE (14:45)
[2021-10-04 15:07] VITALS: BP 123/73; PULSE 77
--- NOTE | 2021-10-04 15:45 | P.PCN ---
Date of Procedure: 10/04/21 Procedure(s) Performed: BRIEF HISTORY: Patient is a 66-year-old, pleasant, white female scheduled for an upper endoscopy as a part of evaluation of dysphagia for the last 5 days duration. She is been having dysphagia to liquids and solids.. PROCEDURE PERFORMED: Esophagogastroduodenoscopy with biopsy. PREOPERATIVE DIAGNOSIS: Progressive dysphagia to solids for the last 5 days duration. IV sedation per anesthesia. PROCEDURE: After informed consent was obtained, the patient was brought into the endoscopy unit. IV sedation was administered by Anesthesia under continuous monitoring. Initially the Olympus GIF-140 video endoscope was inserted into the mouth. Esophagus intubated without any difficulty. It was gradually advanced into the stomach and duodenum and carefully examined. The bulb and the second part of the duodenum appeared normal. The scope at this time was withdrawn to the stomach, adequately insufflated with air, and upon careful examination, mucosa of the antrum, had multiple gastric polyps including the and body the stomach and biopsies were done from this area. Rest of the mucosa of the body, cardia and the fundus appeared normal. The scope was then withdrawn into the esophagus. The GE junction was located at 39 cm from the incisors. It was mild erythema noted in the distal esophagus which was biopsied. The stomach esophagus appeared normal. There were no erosions or ulcerations seen , no evidence of esophageal stricture and the patient tolerated the procedure well. IMPRESSION: 1. Normal-appearing esophagus with no evidence of esophageal stricture. 2. Mild distal esophagitis. 3. Multiple small gastric polyps RECOMMENDATIONS: The findings of this examination were discussed with the patient as well as her family. At this time will await biopsy results. Diet will be advanced as tolerated. Continue Protonix daily. Resume aspirin.
[2021-10-04] MEDS ORDERED: PANTOPRAZOLE 40 MG TABLET PO SCH (21:00)
[2021-10-04] MEDS ORDERED: ASPIRIN 81 MG PO SCH (21:00)
--- NOTE | 2021-10-04 21:19 | P.PN ---
Progress Note - Text Progress Note Date: 10/04/21 - Chief Complaint Right hip pain Hospital course This is a 66-year-old patient who follows with Dr. Jimenez. Chronic stable medical conditions include GERD, hyperlipidemia, hypertension, history of left breast cancer treated with radiation and chemotherapy and ALLERGIES for which she takes Singulair. Patient has undergone right total hip arthroplasty. Postprocedure rather sleepy. No chest pain or shortness of breath. No nausea. at the bedside. October 03: Patient did work with therapy. It was discovered that patient been having trouble swallowing both solids and liquids for some time. About 3 years ago and by that she undergo EGD. That time she was found to have esophageal polyps and a bleeding ulcer. Discussed with the patient . We'll order a barium swallow and also discussed Dr. Ankush Forbes from GI for endoscopy tomorrow. Aspirin has been held. Discussed with Dr. Carnes from orthopedics. October 04: Patient underwent EGD today. Found to have mildly subjective this. Some gastric polyp. Discussed Dr. Ankush Forbes. Continue Protonix. Patient okay to resume aspirin. Patient did tolerate her evening meal. Care was discussed with the and the patient. Current medications reviewed Past medical history to include: GERD, hyperlipidemia, hypertension, SVT, left breast cancer in 2010 treated with radiation and chemo, hypothyroid, depression and anxiety Social history: . No history of smoking alcohol Family history: Reviewed, noncontributory to presentation Physical examination: VITAL SIGNS: 98.4, 77, 16, 123/70, 96% room air GENERAL: Sitting up in chair awake, comfortable EYES: Pupils equal. Conjunctiva normal. HEENT: External appearance of nose and ears normal, oral cavity grossly normal. NECK: JVD not raised; masses not palpable. HEART: First and second heart sounds are normal; no edema. LUNGS: Respiratory rate normal; clear to auscultation. ABDOMEN: Soft, nontender, liver spleen not palpable, no masses palpable. PSYCH: Alert and oriented x3; mood and affect normal. MUSCULOSKELETAL:No Clubbing/cyanosis;muscles-grossly intact. Evidence of OA. Dressing over the right hip incision. INVESTIGATIONS, reviewed in the clinical context: October 03: White count 12.1 hemoglobin 9.7 platelets 280 White count 4.8 hemoglobin 12.1 platelets 343 potassium 4 creatinine 1.0 Assessment and plan: -Right total hip arthroplasty Aspirin 81 mg twice a day for DT prophylaxis. Antibiotic prophylaxis with Ancef. Pain control -Progressive dysphagia to solids and liquids with a history of esophageal polyps and peptic ulcer disease about 3 years ago. Barium swallow tomorrow morning and EGD with Dr. Ankush Forbes. Hold aspirin. -GERD Protonix 40 mg a day -Mild esophagitis Protonix -Gastric polyps biopsied Follow-up with Dr. Ankush Forbes -Chronic ALLERGIES Singulair 10 mg daily at bedtime -Hyperlipidemia Lipitor 20 mg a day -Essential hypertension Cardizem 30 mg twice a day hydrochlorothiazide 25 mg a day -Hypothyroid Synthroid 75 g a day -Depression and anxiety not otherwise specified Wellbutrin SR 150 mg a day -Acute postprocedure blood loss anemia as expected from surgery Resume aspirin for DVT prophylaxis. Continue Protonix. Patient tolerated diet. Discussed with the patient, Dr. Ankush Forbes and the nurse. Total time spent today about 40 minutes with over 25 minutes of discussion. Follow-up with PCP and Dr. Ankush Forbes. Thank you Dr. Carnes
--- NOTE | 2021-10-05 13:49 | P.DS ---
Providers Date of admission: 10/03/21 12:09 Expected date of discharge: 10/04/21 Attending physician: Bhaskar Carnes Consults: 10/02/21 13:54 Consult Physician Routine Consulting Provider: Chi Benitez Consult Reason/Comments: medical management Do you want consulting provider notified?: Yes 10/03/21 11:52 Consult Physician Routine Consulting Provider: Janelle Forbes Consult Reason/Comments: difficulty swallow Do you want consulting provider notified?: Yes Primary care physician: Krystal Jimenez [facility] Course: This is a 66-year-old female who was last seen in our office with complaint of continued right hip pain. The patient has a known history of degenerative arthritis of the right hip and presents to discuss surgical options. After discussion and consideration the patient elects to proceed with right total hip arthroplasty. She is seen preoperatively by her PCP Ananya Powell NP and cleared for surgery. The patient is admitted to [facility] for right total hip arthroplasty on 10/02/21. The procedure is performed without complication or sequelae. The patient is doing well postoperatively. Vital signs and postoperative labs are stable. Patient did has issues with swallowing post- operatively and underwent an EGD by Dr. Forbes earlier today. Patient has been cleared for discharge by Dr. Forbes and Dr. Benitez this evening on 10/04/21. Patient is seen and examined bedside the 10/04/21 she states her pain is well- controlled in the right hip. She is ambulating with a walker and using stairs with minimal pain. Patient denies chest pain, shortness of breath, nausea, vomiting. Hemovac drain is removed. On examination, patient is sitting up in the bedside chair in no apparent distress. She is alert and orientated x3. On inspection of the right hip, there is clean, dry, intact opsite dressings intact. Mild swelling of the thigh, thigh is soft and compressible. Motor and sensory function intact right lower extremity, femoral nerve function intact. Dorsalis pedis pulse palpable, RLE is warm and well-perfused. Calf is soft and non-tender. The patient is discharged to home today pending medical clearance. Please see discharge orders. Please refer to the med rec for accurate list of medications. Patient will follow-up in the office in two weeks with Dr. Carnes. Plan - Discharge Summary Discharge Rx Participant: Yes New Discharge Prescriptions: New HYDROcodone/APAP 5-325MG [[place] 5-325] 1 - 2 tab PO Q6HR PRN 7 Days #40 tab PRN Reason: Pain Omeprazole 40 mg PO DAILY 30 Days #30 cap Aspirin 81 mg PO BID 30 Days #60 tab Docusate [Colace] 100 mg PO BID #60 capsule Tamsulosin [Flomax] 0.4 mg PO DAILY #30 cap Continue Spironolactone [Aldactone] 25 mg PO DAILY buPROPion SR [Wellbutrin SR] 150 mg PO QAM Anastrozole [Arimidex] 1 mg PO DAILY [place]-Sektzer Plus Sinus & Pain 1 tab PO DAILY PRN PRN Reason: Congestion Montelukast Sodium [Singulair] 10 mg PO HS Atorvastatin Calcium [Lipitor] 20 mg PO DAILY dilTIAZem HCL 30 mg PO BID Flecainide [Tambocor] 50 mg PO Q12HR Levothyroxine Sodium [Synthroid] 75 mcg PO DAILY Discontinued Potassium Chloride ER [K-Dur 20] 20 meq PO DAILY Aspirin [Vazalore] 81 mg PO DAILY hydroCHLOROthiazide [Hydrodiuril] 25 mg PO DAILY Pantoprazole [Protonix] 40 mg PO QAM Discharge Medication List [place]-Sektzer Plus Sinus & Pain 1 tab PO DAILY PRN 09/24/21 [History] Anastrozole [Arimidex] 1 mg PO DAILY 09/24/21 [History] Atorvastatin Calcium [Lipitor] 20 mg PO DAILY 09/24/21 [History] Flecainide [Tambocor] 50 mg PO Q12HR 09/24/21 [History] Levothyroxine Sodium [Synthroid] 75 mcg PO DAILY 09/24/21 [History] Montelukast Sodium [Singulair] 10 mg PO HS 09/24/21 [History] Spironolactone [Aldactone] 25 mg PO DAILY 09/24/21 [History] buPROPion SR [Wellbutrin SR] 150 mg PO QAM 09/24/21 [History] dilTIAZem HCL 30 mg PO BID 09/24/21 [History] Aspirin 81 mg PO BID 30 Days #60 tab 10/04/21 [Rx] Docusate [Colace] 100 mg PO BID #60 capsule 10/04/21 [Rx] HYDROcodone/APAP 5-325MG [[place] 5-325] 1 - 2 tab PO Q6HR PRN 7 Days #40 tab 10/04/21 [Rx] Omeprazole 40 mg PO DAILY 30 Days #30 cap 10/04/21 [Rx] Tamsulosin [Flomax] 0.4 mg PO DAILY #30 cap 10/04/21 [Rx] Follow up Appointment(s)/Referral(s): Ananya Powell, [facility] [REFERRING] - 1 Week Janelle Forbes MD [STAFF PHYSICIAN] - 4 Weeks [facility], [NON-STAFF] - As Needed ([facility] will call you to schedule your in home physical therapy visits. ) Bhaskar Carnes MD [Medical Doctor] - 10/17/21 10:45 am Patient Instructions/Handouts: Anterior Hip Replacement (DC) Activity/Diet/Wound Care/Special Instructions: Weight bear as tolerated on operative leg with a walker. Keep operative dressings intact until follow-up in the office. Take pain medications as prescribed. Take aspirin 81mg BID x 4 weeks for blood clot prevention. Follow-up in the office in [address] Carnes. Call the office with any questions or concerns, Discharge Disposition: HOME WITH HOME HEALTH SERVICES
== END 2021-10-04 19:34 | disposition home health service (06) ==
LOC: OR 08:43 → 4SSUR 12:37 → OR 10-03 12:09
PROVIDERS: ADMIT Orthopaedic Surgery; ATTEND Orthopaedic Surgery
DX: M16.11 Unilateral primary osteoarthritis, right hip (principal); M25.751 Osteophyte, right hip; R13.10 Dysphagia, unspecified; K31.7 Polyp of stomach and duodenum; K21.00 Gastro-esophageal reflux disease with esophagitis, without bleeding; E78.5 Hyperlipidemia, unspecified; I47.1 Supraventricular tachycardia; D50.0 Iron deficiency anemia secondary to blood loss (chronic); I10 Essential (primary) hypertension; Z85.3 Personal history of malignant neoplasm of breast; Z92.3 Personal history of irradiation; Z92.21 Personal history of antineoplastic chemotherapy; E03.9 Hypothyroidism, unspecified; F32.A Depression, unspecified; F41.9 Anxiety disorder, unspecified; Z87.11 Personal history of peptic ulcer disease; Z90.49 Acquired absence of other specified parts of digestive tract; Z90.710 Acquired absence of both cervix and uterus; Z90.13 Acquired absence of bilateral breasts and nipples; Z98.890 Other specified postprocedural states; Z79.890 Hormone replacement therapy; Z79.811 Long term (current) use of aromatase inhibitors; Z79.82 Long term (current) use of aspirin; Z79.899 Other long term (current) drug therapy; Z88.1 Allergy status to other antibiotic agents; Z88.5 Allergy status to narcotic agent; Z88.2 Allergy status to sulfonamides
CPT/HCPCS: 27130; 97116; 97161; 97535 ×2; 97165; 92610; 86900; 86901; 88305 ×2; 85025; 86850; 88312; 88311; 74220; 73501; 43239; G0378 ×2; C1776; J2250; J1100; J2710; S0106; J0690 ×2; J2405; J2001 ×2; J3010; J1650; S0170; J1885; J0330; J2704 ×2; J1170 ×2

== ENCOUNTER 2024-03-25 06:47 | Day surgery (SDC) | payer BC, MEDICARE ==
[2024-03-21 10:49] VITALS: BMI 27.1
[2024-03-25] MEDS ORDERED: fentaNYL (PF) 50 MCG/ML 2 ML AMP IV PRN (07:00)
[2024-03-25] MEDS: IV FLUID CONTINUATION 1,000 ML IV ONE (08:02)
[2024-03-25] MEDS: ONDANSETRON 4 MG/2 ML VIAL IVP ONE (08:04)
[2024-03-25] MEDS: LACTATED RINGERS 1,000 ML IV SCH (08:05)
[2024-03-25] MEDS: DEXAMETHASONE SOD PHOSPHATE 4 MG/ML 1 ML VIAL IV ONE (08:06)
[2024-03-25] MEDS: MIDAZOLAM 2 MG/2 ML VIAL IV PRN (08:16)
[2024-03-25 08:17] LABS: Basophils % (A) 0 %; Eosinophils # (A) 0.1 k/uL (0-0.7); Eosinophils % (A) 2 %; HCT 40.7 % (34.0-46.0); HGB 13.4 gm/dL (11.4-16.0); Lymphocytes # (A) 1.1 k/uL (1.0-4.8); Lymphocytes % (A) 20 %; MCHC 32.9 g/dL (31.0-37.0); MCV 94.3 fL (80.0-100.0); Monocytes # (A) 0.4 k/uL (0-1.0); Monocytes % (A) 7 %; Neutrophils # (A) 3.8 k/uL (1.3-7.7); Neutrophils % (A) 69 %; Platelet Count 254 k/uL (150-450); RBC 4.31 m/uL (3.80-5.40); RDW 13.4 % (11.5-15.5); WBC 5.5 k/uL (3.8-10.6)
[2024-03-25 08:29] LABS: ALT 24 U/L (4-34); AST 28 U/L (14-36); African American GFR (CKD) 71 (>60 ml/min/1.73 sqM); Albumin 4.3 g/dL (3.5-5.0); Alkaline Phosphatase 112 U/L (38-126); Anion Gap 8 mmol/L; Blood Urea Nitrogen 12 mg/dL (7-17); Calcium 8.7 mg/dL (8.4-10.2); Carbon Dioxide 28 mmol/L (22-30); Chloride 99 mmol/L (98-107); Glucose 84 mg/dL (74-99); Non-African American GFR(CKD) 62 (>60 ml/min/1.73 sqM); Potassium 3.6 mmol/L (3.5-5.1); Sodium 135 mmol/L (137-145); Total Bilirubin 0.7 mg/dL (0.2-1.3); Total Protein 6.6 g/dL (6.3-8.2)
[2024-03-25] MEDS ORDERED: LIDOCAINE 1% INJ 10MG/ML (20 ML MDV) ONE (08:32)
[2024-03-25] MEDS ORDERED: fentaNYL (PF) 50 MCG/ML 2 ML AMP ONE (08:32)
[2024-03-25] MEDS ORDERED: PROPOFOL 10 MG/ML 20 ML VIAL IV ONE (08:32)
[2024-03-25] MEDS ORDERED: SUCCINYLCHOLINE CHLORIDE 200 MG/10 ML VIAL IV ONE (08:32)
[2024-03-25] MEDS ORDERED: DEXAMETHASONE SOD PHOSPHATE 4 MG/ML 1 ML VIAL ONE (08:32)
[2024-03-25] MEDS ORDERED: ROPIVACAINE 5 MG/ML 30 ML VIAL ONE (08:32)
[2024-03-25] MEDS ORDERED: PHENYLEPHRINE-0.9% NACL SYG 1,000 MCG/10 ML SYRINGE ONE (08:32)
[2024-03-25] MEDS: ceFAZolin 1,000 MG in SODIUM CHLORIDE 0.9% 1,000 ML IRRIGATION ONE (09:11)
--- NOTE | 2024-03-25 09:47 | P.ANPRN ---
Procedure Note - Anesthesia - Nerve Block Performed Left Adductor Canal Single Time Out Performed: Yes Date of Procedure: 03/25/24 Procedure Start Time: 08:15 Procedure Stop Time: 08:20 Location of Patient: PreOp Indication: Acute Post-Operative Pain, Requested by Surgeon Sedation Type: Sedate with meaningful contact maintained Preparation: Sterile Prep, Sterile Dressing Position: Supine Catheter: None Needle Types: Facet Needle Gauge: 20 Ultrasound used to visualize needle placement: Yes Ultrasound used to observe medication spread: Yes Injectate: 0.5% Ropivacaine (see comment for volume) (10 ml + decadron 2 mg) Blood Aspirated: No Pain Paresthesia on Injection Noted: No Resistance on Injection: Normal Image Stored and Saved: Yes Events: Uneventful and Well Tolerated Left Popliteal Single Time Out Performed: Yes Date of Procedure: 03/25/24 Procedure Start Time: 08:21 Procedure Stop Time: 08:30 Location of Patient: PreOp Indication: Acute Post-Operative Pain, Requested by Surgeon Sedation Type: Sedate with meaningful contact maintained Preparation: Sterile Prep, Sterile Dressing Position: Right Lateral Catheter: None Needle Types: Facet Needle Gauge: 20 Ultrasound used to visualize needle placement: Yes Ultrasound used to observe medication spread: Yes Injectate: 0.5% Ropivacaine (see comment for volume) (20 ml + decadron 3 mg) Blood Aspirated: No Pain Paresthesia on Injection Noted: No Resistance on Injection: Normal Image Stored and Saved: Yes Events: Uneventful and Well Tolerated
[2024-03-25 11:00] VITALS: TEMP 96.8
[2024-03-25 12:15] VITALS: PULSE 68
[2024-03-25 12:36] VITALS: BP 147/84; RESP 20
--- NOTE | 2024-03-25 13:50 | P.OP ---
Date of Procedure: 03/25/24 Preoperative Diagnosis: 1. 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 Hallux valgus left foot Postoperative Diagnosis: 1. Same 2. Same Procedure(s) Performed: 1. Second and third tarsometatarsal joint arthrodesis left foot 2. Bunionectomy by double osteotomy left foot Implants: Arthrex 4.0 mm fully threaded beveled screws 2 Arthrex 3.5 mm fully threaded beveled screw Arthrex compression emmett 2 Arthrex allograft Anesthesia: GETA Surgeon: Cderic Krishna Estimated Blood Loss (ml): 5 Pathology: none sent Condition: stable Disposition: PACU Description of Procedure: prior to the patient being brought to the operative room, anesthesia administered nerve block and left for extremity. The patient was brought into the operative room placed on table supine position. Timeout was taken to confirm correct patient identifiers, correct laterally of surgery, and correct procedure. Once all staff in the room were in agreement timeout, the patient was induced and placed under general anesthesia. A well-padded tourniquet was placed on the left calf. The left leg was then prepped and draped usual manner. The left leg was exsanguinated and the tourniquet inflated to 250 mmHg. Utilizing fluoroscopic visualization, the second and third tarsometatarsal joints were identified with metallic marker. Then the skin marker was used to create the incision over this area. The incision was deepened down to the saphenous tissue careful to identify, avoid, and retract any neurovascular structures and cauterize any bleeding vessels. Dissection was carried down to the deep fascia which was incised while protecting the underlying structures. Then the deep peroneal nerve was identified and freed from the surrounding soft tissue to decompress the nerve then the tibia and compressed. That was carefully retracted medially and the dissection was continued down to the joint capsule and periosteum over the second and third tarsometatarsal joints. Transverse incisions were made to the second and third tarsometatarsal joints to preserve the periosteal structures. An osteotome was inserted to free the plantar soft tissue allow distraction of the joint. A 2.2 mm Lluvia bur was then used to perform the joint resections distally and proximally to remove all the cartilage and expose medullary bone. The 2 surfaces were then aggressively fenestrated. the Arthrex allograft was then mixed on the back table and then placed between the arthrodesis segments. Temporary fixation was done with K wires to hold the joint reduced. The drill guides for the compression emmett were placed across the second tarsometatarsal joint. Once properly aligned, drilling was performed and then pins put in place to maintain identity the drill holes. Then while holding the arthrodesis site reduced, the compression staple was inserted and impacted down to proper depth. The insertion total was removed allow the legs to start compression. Fluoroscopic imaging confirmed the proper alignment of the staple. The same process was used over the third tarsometatarsal joint without exception. Final fluoroscopic imaging showed good compression across the arthrodesis sites with proper placement with emmett. The wound is irrigated with antibiotic saline. Deep closure was done with 2-0 Vicryl. Subcu closure was done with 4-0 Monocryl. And skin closure was done with 4-0 Stratafix in a running subcuticular manner. Under fluoroscopic visualization, metallic wires were used to identify anatomic landmarks on the foot. This included the first tarsometatarsal joint, the first metatarsal phalangeal joint, as well as the midline of the first metatarsal shaft. A marker was used to identify these on the skin. Under direct fluoroscopic visualization an initial guidewire was placed at the base of the first metatarsal along the medial aspect. It was then advanced distally and laterally until it penetrated the lateral cortex at the distal one third. Fluoroscopy the was used to make sure that the wire showed correct alignment both on AP and lateral views. Once that was established, a small stab incision was made over the skin at the medial aspect of the first metatarsal neck. An elevator was used to remove the periosteum dorsally. A Lluvia bur was inserted on the medial side of the first metatarsal, this was located approximately 20 mm from the first metatarsal phalangeal joint. The bur was advanced until it breach the lateral cortex and then with a rotation movement, the bur was used to cut through the first metatarsal dorsally and plantarly. Also the foot position was such that it was a straight dorsal to plantar cut. Once completed a hemostat was inserted into the medullary canal and used to shift the capital fragment laterally. The hemostat was removed and the correction device was i nserted into the medullary canal. Once it was aligned, a K wire was placed through device and the metatarsal head to secure its placement.. Then the correction device was turned to laterally displace the metatarsal head to correct the intermetatarsal angle. Once sufficient correction was obtained, the initial guidewire was advanced to capture the first metatarsal head towards the lateral aspect. A parallel guide was placed over the initial wire and then the second wire was then inserted through the guide and advanced through the first metatarsal into the metatarsal head. Fluoroscopy was used to confirm the proper placement of both wires, that they were parallel to the first metatarsal axis and were also at the midline. The more proximal wire was then advanced to the plantar aspect of the foot and then clamped with a hemostat. Small stab incision was made to the skin and then drilling was performed over the proximal wire into the first metatarsal head. Minimally invasive bunionectomy screw was then inserted over the guidewire and advanced until there was full purchase of the threads and that the bevel was parallel to the medial cortex of the first metatarsal. A second wire was then drilled and the screw was inserted over the wire and advanced until purchase the medial cortex of the first metatarsal and so the bevel was also parallel. Final fluoroscopic imaging showed proper placement of both screws. There was maintained correction of the intermetatarsal angle. Both wires were then removed. Then attention directed the proximal phalanx of the great toe. Fluoroscopy was used to identify an area of the Teodoro osteotomy along the medial aspect of the proximal phalanx. A small stab incision was made through the skin and the elevator used to raise periosteum. The bur was inserted just proximal to the midpoint of the phalanx it was advanced to the lateral cortex but not through it. The bur was rotated dorsally and plantarly to perform the osteotomy. Then the osteotomy was reduced and then the bur was inserted again and the same process was used to remove more bone to allow for the angular correction. Once the osteotomy was completed a guidewire for a 3.5mm fully threaded, beveled, headless screw was inserted at the proximal medial head of the proximal phalanx that was advanced in a distal lateral direction across the osteotomy. Overdrill was performed and the screw was inserted across the wire and advanced until the threads engaged the cortex and providing compression across the osteotomy. A bone reduction bur was inserted near the first metatarsal osteotomy and that was used to reduce the medial shelf of the first metatarsal created by the shifting of the capital fragment. Final fluoroscopic imaging showed full correction of the deformity. All hardware was properly aligned. The wounds were thoroughly irrigated with antibiotic saline. Skin closure was done with 3- 0 nylon. A linear gauze and a dry sterile dressing applied to left foot. The patient tolerated above procedure and anesthesia well which recovery with vital signs stable
== END 2024-03-25 13:29 | disposition home or self-care (01) ==
LOC: OR 06:47
PROVIDERS: ATTEND Podiatrist
CPT/HCPCS: 64445; 64447; 80053; 85025